=== PATIENT | female | born 1950 | race Caucasian/White ===

== ENCOUNTER → 2017-02-14 | Outpatient (CLI) | payer OTHER ==
--- NOTE | 2017-02-14 14:31 | MAMMOGRAPHY REPORT ---
BILATERAL DIGITAL SCREENING MAMMOGRAM TOMOSYNTHESIS WITH CAD: 02/14/2017 CLINICAL HISTORY: Routine screening. Patient has no complaints. TECHNIQUE: Breast tomosynthesis in addition to standard 2D mammography was performed. Current study was also evaluated with a Computer Aided Detection (CAD) system. COMPARISON: Comparison is made to exams dated: 02/11/2016 mammogram, 02/04/2015 mammogram, 10/23/2013 mammogram, 10/19/2012 mammogram, 10/21/2010 mammogram, and 10/16/2009 mammogram - [facility]. BREAST COMPOSITION: The tissue of both breasts is heterogeneously dense, which may obscure small mas ses. FINDINGS: There is a newly visualized lobulated and circumscribed 10 mm mass in the 6:00 middle to a nterior left breast, for which additional targeted ultrasound and possible additional mammographic vi ews are recommended. A tiny, incompletely visualized 5 mm asymmetry is seen in the medial and far po sterior right breast on the CC view, which could represent sternalis muscle. However, additional spo t compression tomosynthesis view with possible ultrasound is recommended. Questionable architectural distortion in the 12:00 anterior right breast for which additional spot compression tomosynthesis vi ews with possible ultrasound is recommended. No other suspicious mass, architectural distortion or cluster of microcalcifications is seen bilatera lly. IMPRESSION: ACR BI-RADS CATEGORY 0: INCOMPLETE EVALUATION: NEED ADDITIONAL IMAGING EVALUATION The questionable architectural distortion in the 12:00 anterior right breast, small 5 mm asymmetry in the medial, far posterior right breast and newly visualized lobulated 10 mm mass in the 6:00 left br east need additional imaging evaluation. The patient will be called to schedule an appointment. Approximately 10% of breast cancers are not detected with mammography. A negative mammographic report should not delay biopsy if a clinically suggestive mass is present. Mikala Chambers M.D. ay/:02/14/2017 13:40:44 English Composition Teacher: Felipa Aguilar M, [facility] letter sent: Addl Imaging 0 BI-RADS Code: ACR BI-RADS Category 0: Incomplete Evaluation: Need Additional Imaging Evaluation
== END | disposition home or self-care (01) ==
LOC: C.MAMM 08:53
PROVIDERS: ATTEND Family Medicine
DX: Z12.31 Encounter for screening mammogram for malignant neoplasm of breast (principal); N64.89 Other specified disorders of breast; N63.42 Unspecified lump in left breast, subareolar

== ENCOUNTER → 2017-02-22 | Outpatient (CLI) | payer OTHER ==
--- NOTE | 2017-02-23 07:55 | MAMMOGRAPHY REPORT ---
UNILATERAL RIGHT DIGITAL DIAGNOSTIC MAMMOGRAM TOMOSYNTHESIS AND TARGETED BILATERAL ULTRASOUND: 2016 CLINICAL HISTORY: Callback from screening mammography for a possible 10 mm mass in the left breast, p ossible architectural distortion and an asymmetry in the right breast. TECHNIQUE: Spot compression right CC and MLO tomosynthesis images were obtained. COMPARISON: Comparison is made to exams dated: 02/14/2017 mammogram, 02/11/2016 mammogram, 5 mammogram, 10/23/2013 mammogram, 10/19/2012 mammogram, and 10/21/2010 mammogram - [facility]. BREAST COMPOSITION: The tissue of the right breast is heterogeneously dense, which may obscure small masses. FINDINGS: The additional spot compression tomosynthesis views of the right breast demonstrate no pers istent area of architectural distortion in the anterior breast. There are a few scattered benign-leatha earing calcifications. No suspicious mass or other suspicious abnormality. The spot compression yecenia osynthesis view in the far medial and posterior right breast demonstrates the small incompletely visu alized asymmetry has the appearance of muscle fibers and is most compatible with sternalis muscle nor mal anatomic variant. Targeted ultrasound was performed in the slightly inferior and retroareolar left breast to assess for the mammographic mass and also throughout the right breast with particular attention to the medial b reast. In the left 5:00 periareolar breast, there is a lobulated circumscribed parallel anechoic naresh ign simple cyst measuring approximately 7.7 x 5.4 x 9.0 mm. This correlates in size, shape and locat ion as the mammographic mass and is benign. There is also mild benign duct ectasia in the retroareol ar left breast. Duct ectasia is also seen in the retroareolar right breast. In the periareolar right breast and thro ughout the medial breast, sonographically normal tissue is seen without a suspicious solid or cystic mass. IMPRESSION: ACR BI-RADS CATEGORY 2: BENIGN, TARGETED ULTRASOUND ACR BI-RADS CATEGORY 2: BENIGN 1. The lobulated 10 mm mass in the slightly inferior left breast correlates with a benign simple cys t on ultrasound. No further workup is needed at this time. 2. There is no persistent architectural distortion or suspicious sonographic mass in the anterior ri ght breast in the area of questionable architectural distortion seen on screening mammography. This finding is also considered benign. 3. The asymmetry in the far medial posterior right breast most likely represents sternalis muscle no rmal anatomic variant. These results and recommendations were discussed with the patient at the time of the exam. Recommend routine screening tomosynthesis mammography in one year. Approximately 10% of breast cancers are not detected with mammography. A negative mammographic report should not delay biopsy if a clinically suggestive mass is present. Mikala Chambers M.D. ay/:02/22/2017 15:52:08 Configuration Technician: Joyce NÚÑEZ(Felipa)(M), [facility] letter sent: Normal 1/2 BI-RADS Code: ACR BI-RADS Category 2: Benign Ultrasound BI-RADS: ACR BI-RADS Category 2: Benign
== END | disposition home or self-care (01) ==
LOC: C.MAMM 14:20
PROVIDERS: ATTEND Family Medicine
DX: R92.8 Other abnormal and inconclusive findings on diagnostic imaging of breast (principal); N63.20 Unspecified lump in the left breast, unspecified quadrant

== ENCOUNTER → 2017-10-19 | Outpatient (CLI) | payer OTHER ==
--- NOTE | 2017-10-19 14:56 | DIAGNOSTIC IMAGING REPORT ---
ULTRASOUND GUIDED NEEDLE FINE ASPIRATION OF 7 MM RIGHT PAROTID GLAND LESION CLINICAL HISTORY: Right parotid mass. COMPARISON STUDY: CT of the neck October 10, 2017. PROCEDURE: Sonography of the right parotid gland demonstrated the 7 mm hypoechoic/cystic lesion within the superficial lobe of the right parotid gland which represents the palpable abnormality. This was targeted for fine needle aspiration. The procedure, risks and benefits were discussed with the patient. The patient agreed to the procedure and informed written consent was obtained. The procedure was performed by Dr. Arora following a timeout. Skin overlying this lesion was prepped and draped in sterile fashion and local anesthesia was achieved with 1% lidocaine. Under direct ultrasound guidance, 5 25-gauge fine needle aspirations were performed. Samples were deemed preliminarily adequate by pathology. Patient tolerated the procedure well and no immediate complications were evident. IMPRESSION: Successful ultrasound guided fine needle aspiration of a 7 mm palpable right parotid gland lesion. Electronically signed by: Aman Arora M.D. 10/19/2017 2:55 PM Dictated Date/Time: 10/19/2017 2:53 PM
== END | disposition home or self-care (01) ==
LOC: C.ULTR 13:36
DX: K11.9 Disease of salivary gland, unspecified (principal)